=== PATIENT | female | born 1975 | race Caucasian/White ===

== ENCOUNTER 2021-03-06 06:18 | Inpatient (IN) ==
[2021-03-06] MEDS ORDERED: cefOXitin 2,000 MG in Water for inj. (sterile) 20 ML IVP ONE (06:35)
[2021-03-06] MEDS ORDERED: Acetaminophen IV 1,000 MG/100 ML BAG IVPB ONE (06:36)
[2021-03-06] MEDS ORDERED: *HR* Meperidine 25 MG/ML SYRINGE IVP PRN (07:20)
[2021-03-06] MEDS ORDERED: Promethazine 6.25 MG in Water for inj. (sterile) 20 ML IVPB PRN (07:20)
[2021-03-06] MEDS ORDERED: Scopolamine Patch 1.5 MG PATCH.TD72 TD ONE (07:20)
[2021-03-06] MEDS ORDERED: Ondansetron 4 MG/2 ML VIAL IVP PRN ×2 (07:20→09:39)
[2021-03-06] MEDS ORDERED: *HR* HYDROmorphone PF 0.5 MG/0.5 ML SYRINGE IVP PRN (07:34)
[2021-03-06] MEDS ORDERED: *HR* Propofol 200 MG/20 ML VIAL IVP ONE (07:37)
[2021-03-06] MEDS ORDERED: *HR* Succinylcholine 200 MG/10 ML VIAL IVP ONE (07:37)
[2021-03-06] MEDS ORDERED: Lidocaine -MPF 2% 2 ML VIAL ONE (07:37)
[2021-03-06] MEDS ORDERED: *HR* Rocuronium Bromide 50 MG/5 ML VIAL ONE (07:37)
[2021-03-06] MEDS ORDERED: *HR* Midazolam HCl 2 MG/2 ML VIAL ONE (07:37)
[2021-03-06] MEDS ORDERED: Ondansetron 4 MG/2 ML VIAL ONE (07:37)
[2021-03-06] MEDS ORDERED: *HR* FentaNYL (PF) 100 MCG/2 ML VIAL ONE (07:37)
[2021-03-06] MEDS: Ringers Solution, Lactated 1,000 ML IVC SCH ×2 (07:40→18:01)
[2021-03-06] MEDS ORDERED: *HR* Magnesium Sulfate 1 GM/2 ML VIAL ONE (07:44)
[2021-03-06] MEDS ORDERED: Metoclopramide 10 MG/2 ML VIAL ONE (08:39)
[2021-03-06] MEDS ORDERED: Lacri-Lube 3.5 GM TUBE ONE (08:51)
[2021-03-06] MEDS ORDERED: Sugammadex Sodium 200 MG/2 ML VIAL IV ONE (09:29)
[2021-03-06] MEDS ORDERED: Ketorolac 30 MG/ML VIAL ONE (09:29)
[2021-03-06] MEDS ORDERED: *HR* HYDROMORPHONE 2 MG/ML VIAL ONE (09:38)
[2021-03-06] MEDS ORDERED: Naloxone 0.4 MG/ML INJ IVP PRN (09:39)
[2021-03-06] MEDS ORDERED: *HR* HYDROmorphone (PF) 1 MG/ML SYRINGE IVP PRN (09:39)
[2021-03-06] MEDS: *HR* OxyCODONE/APAP 5/325 TABLET PO PRN ×4 (10:53→22:29)
[2021-03-06] MEDS ORDERED: *HR* LORazepam 0.5 MG TABLET PO PRN (16:35)
[2021-03-06] MEDS: FLUoxetine 20 MG CAPSULE PO SCH (17:23)
[2021-03-06] MEDS: cefOXitin 1,000 MG in Water for inj. (sterile) 10 ML IVP SCH (17:24)
[2021-03-06] MEDS: BuPROPion SR (12 HR) 150 MG TABLET PO SCH (17:31)
[2021-03-06] MEDS ORDERED: *HR* LORazepam 1 MG TABLET PO PRN (18:26)
[2021-03-07] MEDS: cefOXitin 1,000 MG in Water for inj. (sterile) 10 ML IVP SCH ×2 (00:12→08:37)
[2021-03-07] MEDS: *HR* OxyCODONE/APAP 5/325 TABLET PO PRN ×3 (04:12→20:11)
[2021-03-07 04:45] LABS: Basophils % 0.1 %; Hematocrit 35.2 % (35.3-44.9); Hemoglobin 11.6 g/dL (11.5-15.4); Immature Granulocytes % 0.4 % (0-4); Lymphocytes # 0.8 K/mcL (0.6-4.6); Lymphocytes % 5.5 %; Mean Corpuscular Hemoglobin 27.7 pg (28.0-33.3); Mean Platelet Volume 9.7 fL (9.4-12.4); Monocytes # 0.5 K/mcL (0.0-1.3); Monocytes % 3.4 %; Neutrophils # 13.4 K/mcL (1.6-8.9); Platelet Count 302 K/mcL (140-400); Red Blood Count 4.19 M/mcL (3.82-4.97); Red Cell Distribution Width 13.3 % (11.5-14.5); Segmented Neutrophils % 90.6 %
[2021-03-07 04:50] LABS: White Blood Count 14.8 K/mcL (4.3-11.1)
[2021-03-07] MEDS: Loratadine 10 MG TABLET PO SCH (08:35)
[2021-03-07] MEDS: FLUoxetine 20 MG CAPSULE PO SCH (08:35)
[2021-03-07 20:20] VITALS: O2SAT 99
[2021-03-08] MEDS: *HR* OxyCODONE/APAP 5/325 TABLET PO PRN (04:28)
[2021-03-08 07:41] VITALS: BP 130/88; PULSE 66; TEMP 98
[2021-03-08] MEDS: Loratadine 10 MG TABLET PO SCH (08:54)
[2021-03-08] MEDS: BuPROPion SR (12 HR) 150 MG TABLET PO SCH (08:55)
[2021-03-08] MEDS: FLUoxetine 20 MG CAPSULE PO SCH (08:55)
== END 2021-03-08 09:50 | disposition home or self-care (01) | DRG 743 ==
LOC: SAMDAY 06:18 → 1NENUOBS 10:32
PROVIDERS: ADMIT Obstetrics & Gynecology; ATTEND Obstetrics & Gynecology